=== PATIENT | male | born 1980 | race Caucasian/White ===

== ENCOUNTER 2019-12-07 15:54 | Emergency (ER) | payer BC ==
[~2019-12-07] VITALS: Ht 175.3 cm; Wt 77.1 kg
[2019-12-07 15:58] VITALS: BP_SYST 132
--- NOTE | 2019-12-07 15:58 | NUR ---
BROUGHT BACK TO [facility], CHAIR #3, REPORT GIVEN TO CLAUDE
--- NOTE | 2019-12-07 16:04 | NUR ---
Pt brought by self ,A&Ox4, pt presents to ER with R knee pain/redness,hot to touch,skin pink and warm, cap refill <3 , VSS ,respirations even and unlabored
--- NOTE | 2019-12-07 16:10 | NUR ---
ASPEN DAVISON AT BEDSIDE FOR EVALUATION
--- NOTE | 2019-12-07 16:24 | NUR ---
TAKEN TO RADIOLOG VIA WHEELCHAIR.
[2019-12-07 17:18] LABS: BASOPHILS % (AUTO) 0.4 % (0.0-2.0); EOSINOPHILS # (AUTO) 0.2 K/uL (0.0-0.4); EOSINOPHILS % (AUTO) 1.4 % (0.0-4.0); HEMOGLOBIN 15.9 g/dL (14.0-18.0); LYMPHOCYTES # (AUTO) 2.9 K/uL (1.0-5.5); LYMPHOCYTES % (AUTO) 24.9 % (20.5-51.5); MEAN CORPUSCULAR HEMOGLOBIN 32 pg (27-31); MEAN CORPUSCULAR HGB CONC 35 % (32-36); MEAN CORPUSCULAR VOLUME 93 fL (79.0-98.0); MONOCYTES # (AUTO) 0.8 K/uL (0.0-1.0); MONOCYTES % (AUTO) 6.8 % (1.7-9.3); NEUTROPHILS # (AUTO) 7.7 K/uL (1.8-7.7); NEUTROPHILS % (AUTO) 66.5 % (40.0-70.0); PLATELET COUNT (AUTO) 251 K/uL (130-430); RED BLOOD CELL COUNT(AUTO) 4.93 MIL/uL (4.2-6.2); RED CELL DISTRIBUTION WIDTH 13.3 % (9.0-15.0); WHITE BLOOD COUNT (AUTO) 11.5 K/uL (4.8-10.8)
[2019-12-07 17:25] LABS: CALCIUM 8.7 mg/dL (8.4-11.0); CREATININE 1.17 mg/dL (0.55-1.30); POTASSIUM 3.7 mmol/L (3.5-5.1)
[2019-12-07 17:28] LABS: URIC ACID 4.2 mg/dL (2.4-7.0)
[2019-12-07] MEDS ORDERED: KETOROLAC TROMETHAMINE 60 MG/2 ML VIAL IM ONE (17:45)
[2019-12-07 18:20] VITALS: BP_SYST 138
--- NOTE | 2019-12-07 18:22 | NUR ---
Patient given written and verbal discharge instructions and verbalizes understanding. ER MD discussed with patient the results and treatment provided. Patient in stable condition. ID arm band removed. Rx of MUPIROCIN, TYLENOL EXTRA STRENGTH, DOXYCYCLINE given. Patient educated on pain management and to follow up with PMD. Pain Scale 1/10. Opportunity for questions provided and answered. Medication side effect fact sheet provided.
== END 2019-12-07 18:20 | disposition home or self-care (01) ==
LOC: SED 15:54
DX: L03.115 Cellulitis of right lower limb (principal); F17.210 Nicotine dependence, cigarettes, uncomplicated; F12.90 Cannabis use, unspecified, uncomplicated; R03.0 Elevated blood-pressure reading, without diagnosis of hypertension; Z88.0 Allergy status to penicillin; Z71.6 Tobacco abuse counseling
CPT/HCPCS: 36415; 73564; 80048; 84550; 85025; 87040; 96372; 99284; J1885

== ENCOUNTER 2020-03-15 11:33 | Emergency (ER) | payer SELFPAY ==
[~2020-03-15] VITALS: Ht 172.7 cm; Wt 79.4 kg
[2020-03-15 11:42] VITALS: BP_SYST 108
[2020-03-15 12:47] VITALS: BP_SYST 108
== END 2020-03-15 12:48 | disposition home or self-care (01) ==
LOC: SED 11:33
DX: S50.02XA Contusion of left elbow, initial encounter (principal); Z88.0 Allergy status to penicillin; W18.39XA Other fall on same level, initial encounter; Y93.89 Activity, other specified; Y92.89 Other specified places as the place of occurrence of the external cause; Y99.8 Other external cause status
CPT/HCPCS: 99283

== ENCOUNTER 2020-08-06 22:56 | Emergency (ER) | payer SELFPAY ==
[~2020-08-06] VITALS: Ht 175.3 cm; Wt 79.4 kg
[2020-08-06 23:02] VITALS: BP_SYST 152
--- NOTE | 2020-08-06 23:18 | NUR ---
Patient triaged and placed in waiting room. VSS and patient appears in no acute distress at this time. Awaiting available bed, and MD notified of need for MSE.
--- NOTE | 2020-08-06 23:19 | NUR ---
Pt arrived to ED awake, alert, oriented x4. Pt states that he punched the front door to a house with R hand, and immediately felt pain. pt states he was angry and punched the door of his own free will. Pt states he has been drinking alcohol tonight. Pt denies chest pain, nausea, vomiting, diarrhea, any other medical complaint at this time. Pt has mild deformity and swelling to R hand
--- NOTE | 2020-08-06 23:19 | NUR ---
Pt to Xray With Salomon Blum Tech
--- NOTE | 2020-08-06 23:54 | NUR ---
Patient to ER bed 2 to gown for evaluation. Side rails up. Report received from JENNI Padilla.
--- NOTE | 2020-08-07 | NUR ---
ER at bedside examining patient.
[2020-08-07] MEDS ORDERED: KETOROLAC TROMETHAMINE 60 MG/2 ML VIAL IM ONE ×2 (00:15→00:26)
--- NOTE | 2020-08-07 00:26 | NUR ---
TECH AT BEDSIDE APPLYING SPLINT AND SLING PER MD ORDES.
[2020-08-07 00:34] VITALS: BP_SYST 128
--- NOTE | 2020-08-07 00:34 | NUR ---
Patient given written and verbal discharge instructions and verbalizes understanding. ER MD discussed with patient the results and treatment provided. Patient in stable condition. ID arm band removed. Rx of NORCO AND MOTRIN given. Patient educated on pain management and to follow up with PMD. Pain Scale 2/10. Opportunity for questions provided and answered. Medication side effect fact sheet provided.
== END 2020-08-07 00:34 | disposition home or self-care (01) ==
LOC: SED 22:56
DX: S62.326A Displaced fracture of shaft of fifth metacarpal bone, right hand, initial encounter for closed fracture (principal); Z88.0 Allergy status to penicillin; W22.8XXA Striking against or struck by other objects, initial encounter; Y93.89 Activity, other specified; Y92.89 Other specified places as the place of occurrence of the external cause; Y99.8 Other external cause status
CPT/HCPCS: 29125; 73130; 96372; 99283; J1885

== ENCOUNTER 2020-08-11 13:39 | Emergency (ER) | payer SELFPAY ==
[~2020-08-11] VITALS: Ht 172.7 cm; Wt 77.1 kg
[2020-08-11 13:50] VITALS: BP_SYST 131
[2020-08-11 14:57] VITALS: BP_SYST 142
== END 2020-08-11 14:56 | disposition home or self-care (01) ==
LOC: SED 13:39
DX: S62.314A Displaced fracture of base of fourth metacarpal bone, right hand, initial encounter for closed fracture (principal); Z88.0 Allergy status to penicillin; X58.XXXA Exposure to other specified factors, initial encounter; Y93.89 Activity, other specified; Y92.89 Other specified places as the place of occurrence of the external cause; Y99.8 Other external cause status
CPT/HCPCS: 99283